=== PATIENT | male | born 1960 | race Caucasian/White ===

== ENCOUNTER → 2017-01-06 | Outpatient (REF) | payer OTHER | LOC: M LAB REF 13:44 | PROVIDERS: ATTEND Family Medicine | DX: E78.01 Familial hypercholesterolemia (principal); E78.5 Hyperlipidemia, unspecified ==

== ENCOUNTER → 2018-01-06 | Outpatient (REF) | payer OTHER ==
[2018-01-06 13:19] LABS: C REACTIVE PROTEIN QUANTITATIV < 0.30 MG/DL (0.00-0.30)
== END ==
LOC: M LAB REF 12:07
DX: Z82.49 Family history of ischemic heart disease and other diseases of the circulatory system (principal)
CPT/HCPCS: 86140

== ENCOUNTER 2018-10-05 07:49 | Day surgery (SDC) | payer OTHER ==
[~2018-10-05] VITALS: Ht 185.4 cm; Wt 76.2 kg
[2018-10-05] MEDS ORDERED: LIDOCAINE 2% INJ 100 MG/5 ML SDV (FOR ANES.) As Ordered ONE (08:00)
[2018-10-05] MEDS: NS 1,000 ML IV ONE (08:00)
[2018-10-05] MEDS ORDERED: PROPOFOL 200 MG/20 ML VIAL As Ordered ONE (08:00)
--- NOTE | 2018-10-05 08:42 | ROOR ---
Patient Name: Corey Muñoz Procedure Date: 10/05/2018 8:22 AM Date of : 1960 Age: 58 Room: [facility] Gender: Male Note Status: Finalized Procedure: Colonoscopy Indications: High risk colon cancer surveillance: Personal history of colonic polyps Providers: Blaze Javier Jr, MD Referring MD: Maximiliano Hatch MD Requesting Provider: Medicines: Propofol per Anesthesia Complications: No immediate complications. Procedure: Pre-Anesthesia Assessment: - Prior to the procedure, a History and Physical was performed, and patient medications and allergies were reviewed. The patient is competent. The risks and benefits of the procedure and the sedation options and risks were discussed with the patient. All questions were answered and informed consent was obtained. Patient identification and proposed procedure were verified by the physician and the nurse in the pre-procedure area and in the procedure room. Mental Status Examination: alert and oriented. Airway Examination: normal oropharyngeal airway and neck mobility. Respiratory Examination: clear to auscultation. CV Examination: normal. ASA Grade Assessment: II - A patient with mild systemic disease. After reviewing the risks and benefits, the patient was deemed in satisfactory condition to undergo the procedure. The anesthesia plan was to use moderate sedation / analgesia (conscious sedation). Immediately prior to administration of medications, the patient was re-assessed for adequacy to receive sedatives. The heart rate, respiratory rate, oxygen saturations, blood pressure, adequacy of pulmonary ventilation, and response to care were monitored throughout the procedure. The physical status of the patient was re-assessed after the procedure. The Colonoscope was introduced through the anus and advanced to the cecum, identified by appendiceal orifice and ileocecal valve. The colonoscopy was performed without difficulty. The patient tolerated the procedure well. The quality of the bowel preparation was adequate. Findings: The rectum, recto-sigmoid colon, sigmoid colon, descending colon, transverse colon, ascending colon, cecum, appendiceal orifice and ileocecal valve appeared normal. Impression: - The rectum, recto-sigmoid colon, sigmoid colon, descending colon, transverse colon, ascending colon, cecum, appendiceal orifice and ileocecal valve are normal. - No specimens collected. Recommendation: - Discharge patient to home (ambulatory). - Repeat colonoscopy in 5 years for surveillance. Blaze Javier MD Blaze Javier Jr, MD 10/05/2018 8:42:17 AM Electronically signed by Blaze Javier Jr, MD Number of Addenda: 0 Note Initiated On: 10/05/2018 8:22 AM Estimated Blood Loss: Estimated blood loss: none.
[2018-10-05 09:00] VITALS: BP 111/67
== END 2018-10-05 09:09 | disposition home or self-care (01) ==
LOC: M OPP 07:49
PROVIDERS: ATTEND Surgery
DX: Z12.11 Encounter for screening for malignant neoplasm of colon (principal); Z86.010 Personal history of colon polyps

== ENCOUNTER → 2019-01-29 | Outpatient (CLI) | payer OTHER ==
--- NOTE | 2019-01-29 10:56 | REP ---
MRI brain and IACs: 01/29/2019. Indication: Hearing loss. Comparison: 12/26/2008. Technique: Multiplanar short and long TR sequences of the brain and IACs were performed without gadolinium. Findings: The previously noted signal abnormality within the right centrum semiovale is essentially stable without restricted diffusion or mass effect. No significant new signal abnormalities are detected. There is no hydrocephalus. No cerebellopontine/medullary angle lesions are present. The IACs and membranous labyrinth are unremarkable bilaterally. Left greater than right mastoid effusions are noted. The large intracranial flow voids are unremarkable. Right maxillary retention cyst is redemonstrated. Impression: Unremarkable IACs and membranous labyrinth. Left greater than right mastoid effusions. Stable focus of abnormal signal within the right centrum semiovale. Electronically Signed by Blair Song DO 01/29/2019 10:47 A
== END ==
LOC: M RAD 07:42
PROVIDERS: ATTEND Otolaryngology
DX: H90.A22 Sensorineural hearing loss, unilateral, left ear, with restricted hearing on the contralateral side (principal); H74.8X3 Other specified disorders of middle ear and mastoid, bilateral

== ENCOUNTER 2020-04-11 03:24 | Emergency (ER) | payer OTHER ==
[~2020-04-11] VITALS: Ht 182.9 cm; Wt 81.0 kg
[2020-04-11] MEDS ORDERED: ISOVUE-370 76% 100ML VIAL As Ordered ONE (03:42)
[2020-04-11 04:35] LABS: BASO % 0.4 % (0.0-1.0); EOS # 0.1 10^3/uL (0.0-0.5); EOS % 1.6 % (0.0-3.0); HEMATOCRIT 41.7 % (42.0-52.0); HEMOGLOBIN 13.4 g/dl (13.5-17.5); LYMPH # 0.9 10^3/uL (1.5-5.0); LYMPH % 17.2 % (24.0-44.0); MEAN CORPUSCULAR HEMOGLOBIN 28.5 pg (27.0-33.0); MEAN CORPUSCULAR HGB CONC 32.1 g/dl (32.0-36.5); MEAN CORPUSCULAR VOLUME 88.7 fl (80.0-96.0); MONO # 0.5 10^3/uL (0.0-0.8); NEUTROPHILS # 3.7 10^3/uL (1.5-8.5); NEUTROPHILS % 71.6 % (36.0-66.0); PLATELET COUNT, AUTOMATED 171 10^3/uL (150-450); WHITE BLOOD COUNT 5.1 10^3/uL (4.0-10.0)
[2020-04-11 04:49] LABS: INR 1.13; PARTIAL THROMBOPLASTIN TIME 26.8 SECONDS (24.2-38.5); PROTHROMBIN TIME 14.8 SECONDS (12.5-14.3)
--- NOTE | 2020-04-11 04:53 | REPVR ---
PROCEDURE INFORMATION: Exam: CT Angiography Chest With Contrast Exam date and time: 04/11/2020 3:36 AM Age: 59 years old Clinical indication: Chest pain; Type not specified; Additional info: Back pain, syncope, R/O dissection TECHNIQUE: Imaging protocol: Computed tomographic angiography of the chest with intravenous contrast. 3D rendering (Not supervised by radiologist): MIP and/or 3D reconstructed images were created by the technologist. Radiation optimization: All CT scans at this facility use at least one of these dose optimization techniques: automated exposure control; mA and/or kV adjustment per patient size (includes targeted exams where dose is matched to clinical indication); or iterative reconstruction. Contrast material: ISO; Contrast volume: 100 ml; Contrast route: INTRAVENOUS (IV); COMPARISON: No relevant prior studies available. FINDINGS: Pulmonary arteries: The main pulmonary artery measures 25 mm. No pulmonary embolism is identified. Aorta: The ascending thoracic aorta measures 30 mm. No gross or obvious aortic dissection is identified distal to the mid arch. Artifact and image degradation precludes detailed evaluation of the ascending thoracic aorta. Lungs: Unremarkable. No consolidation. No masses. Pleural space: Unremarkable. No pneumothorax. No pleural effusion. Heart: Unremarkable. No cardiomegaly. No pericardial effusion. Mediastinal space: Slight induration of anterior mediastinal fat which is nonspecific in a patient of this age. Lymph nodes: Unremarkable. No enlarged lymph nodes. Bones/joints: Slight anterior wedge configuration of T6 and T7 which appear to be chronic. Soft tissues: Unremarkable. IMPRESSION: 1. Slight induration of anterior mediastinal fat which is nonspecific in a patient of this age. 2. Otherwise negative CTA chest. Motion and/or beam hardening artifact precludes detailed evaluation of the ascending thoracic aorta and subtle aortic dissection is not excluded on this basis although no gross or obvious dissection is seen. Not grossly ruled in does not mean ruled out. Electronically signed by: Ruben Borjas On 04/11/2020 04:53:16 AM
--- NOTE | 2020-04-11 04:57 | REPVR ---
PROCEDURE INFORMATION: Exam: CT Angiography Abdomen and Pelvis With Contrast Exam date and time: 04/11/2020 3:36 AM Age: 59 years old Clinical indication: Abdominal pain; Generalized; Additional info: Back pain, syncope, R/O dissection TECHNIQUE: Imaging protocol: Computed tomographic angiography of the abdomen and pelvis with intravenous contrast material. 3D rendering (Not supervised by radiologist): MIP and/or 3D reconstructed images were created by the technologist. Radiation optimization: All CT scans at this facility use at least one of these dose optimization techniques: automated exposure control; mA and/or kV adjustment per patient size (includes targeted exams where dose is matched to clinical indication); or iterative reconstruction. Contrast material: ISO; Contrast volume: 100 ml; Contrast route: INTRAVENOUS (IV); COMPARISON: No relevant prior studies available. FINDINGS: Aorta: The abdominal aorta is of normal size without aneurysm or dissection. Celiac trunk and mesenteric arteries: The celiac artery demonstrates a downward hook with slight proximal narrowing which may reflect a median arcuate ligament. The celiac branches appear normal. The SMA and branches appear normal. The AYALA is patent. Renal arteries: There are single patent bilateral renal arteries. Right iliac arteries: No occlusion or significant stenosis. Left iliac arteries: No occlusion or significant stenosis. Liver: No mass. Gallbladder and bile ducts: Unremarkable. No calcified stones. No ductal dilation. Pancreas: Unremarkable. No mass. No ductal dilation. Spleen: Unremarkable. No splenomegaly. Adrenals: Unremarkable. No mass. Kidneys and ureters: Unremarkable. No solid mass. No hydronephrosis. Stomach and bowel: There is colonic diverticulosis without evidence of diverticulitis. Appendix: A normal appendix is seen. Intraperitoneal space: Unremarkable. No free air. No significant fluid collection. Lymph nodes: Unremarkable. No enlarged lymph nodes. Urinary bladder: Unremarkable. No mass. Reproductive: There is mild prostatic enlargement. Bones/joints: No acute fracture. No dislocation. Soft tissues: Unremarkable. IMPRESSION: 1. Downward hook of the celiac artery with slight proximal narrowing which may reflect a median arcuate ligament. 2. Colonic diverticulosis without diverticulitis. 3. Otherwise negative CTA abdomen/pelvis. No abdominal aortic aneurysm or dissection. Electronically signed by: Ruben Borjas On 04/11/2020 04:57:00 AM
[2020-04-11 05:01] LABS: ALBUMIN 3.7 GM/DL (3.2-5.2); ALT/SGPT 33 U/L (12-78); BILIRUBIN,DIRECT 0.2 MG/DL (0.0-0.2); BILIRUBIN,TOTAL 0.4 MG/DL (0.2-1.0); CK-MB VALUE MASS 3.3 NG/ML (<3.6); CPK CREATINE PHOSPHOKINASE 438 U/L (39-308); LIPASE 118 U/L (73-393); MB/CK RELATIVE INDEX 0.75 (< OR =4); TOTAL PROTEIN 6.3 GM/DL (6.4-8.2); TROPONIN I < 0.02 NG/ML (< 0.10)
[2020-04-11] MEDS ORDERED: DICL75TA PO (07:21)
[2020-04-11] MEDS ORDERED: CYCL-707 PO ×2 (07:21→07:22)
[2020-04-11 07:31] VITALS: BP 158/67
--- NOTE | 2020-04-11 09:21 | ED PDOC ---
Post-Departure Follow-Up dr jha faxed formal report of cta abd/p for fu Katie Johnson MD Apr 11, 2020 09:21
--- NOTE | 2020-04-11 20:52 | ECGEPIP ---
[facility] - ED Test Date: 2020-04-11 Pat Name: LOIS ORTIZ Department: Room: - Gender: Male [employer]: jalyn : 1960 Requested By: REAL Harding PA-C Order Number: [id number] Reading MD: Jess Cole Measurements Intervals [place] Rate: 62 P: 69 GA: 204 QRS: 93 QRSD: 98 T: 21 QT: 404 QTc: 412 Interpretive Statements SINUS RHYTHM BORDERLINE RIGHT AXIS DEVIATION No prior Electronically Signed on 04-11-2020 20:52:32 EST by Jess Cole
== END 2020-04-11 07:40 | disposition home or self-care (01) ==
LOC: M ED 03:24
DX: R55 Syncope and collapse (principal); M62.830 Muscle spasm of back; K57.30 Diverticulosis of large intestine without perforation or abscess without bleeding
CPT/HCPCS: 36415; 71275; 74174; 80047; 80076; 82550; 82553; 83605; 83690; 84484; 85025; 85610; 85730; 93005; 93041; 99285; Q9967

== ENCOUNTER → 2022-07-20 | Outpatient (REF) | payer OTHER ==
[~2022-07-20] MED LIST: CYCL-707 PO; DICL75TA PO
[2022-07-22 15:09] LABS: APOLIPOPROTEIN B/A-1 RATIO 0.6 ratio (0.0-0.7); LIPOPROTEIN (a) 22.8 nmol/L (<75.0)
== END ==
LOC: M LAB REF 16:54
PROVIDERS: ATTEND Family Medicine
DX: E78.00 Pure hypercholesterolemia, unspecified (principal)

== ENCOUNTER → 2023-09-01 | Outpatient (CLI) | payer OTHER | LOC: M CARPUL 10:25 | PROVIDERS: ATTEND Family Medicine | DX: I34.1 Nonrheumatic mitral (valve) prolapse (principal) ==

== ENCOUNTER 2023-12-01 06:42 | Day surgery (SDC) | payer OTHER ==
[~2023-12-01] VITALS: Ht 182.9 cm; Wt 75.7 kg
[~2023-12-01 06:42] MED LIST changes: +CETI10CH PO; +FLON1SPR; +KRIL1000 PO; +NS 1,000 ML IV ONE
[2023-12-01] MEDS ORDERED: propofoL 200 MG/20 ML VIAL As Ordered ONE (07:02)
[2023-12-01 07:58] VITALS: TEMP 97.1
[2023-12-01 08:14] VITALS: BP 119/70; O2SAT 100
== END 2023-12-01 08:25 | disposition home or self-care (01) ==
LOC: M OPP 06:42
PROVIDERS: ATTEND Surgery
DX: Z12.11 Encounter for screening for malignant neoplasm of colon (principal); Z86.010 Personal history of colon polyps; Z80.0 Family history of malignant neoplasm of digestive organs; K63.5 Polyp of colon; G47.33 Obstructive sleep apnea (adult) (pediatric); I05.9 Rheumatic mitral valve disease, unspecified; Z79.51 Long term (current) use of inhaled steroids

== ENCOUNTER → 2024-10-15 | Outpatient (REF) | payer OTHER ==
[~2024-10-15] MED LIST changes: -NS 1,000 ML IV ONE
== END ==
LOC: M LAB REF 14:37
PROVIDERS: ATTEND Family Medicine
DX: Z01.84 Encounter for antibody response examination (principal)

== ENCOUNTER → 2025-03-06 | Outpatient (CLI) | payer MEDICARE, OTHER | LOC: M RAD 14:36 | PROVIDERS: ATTEND Nurse Practitioner Family | DX: R22.2 Localized swelling, mass and lump, trunk (principal) ==